=== PATIENT | female | born 1975 | race Caucasian/White ===

== ENCOUNTER 2024-11-06 14:33 | Emergency (ER) | payer BC, SELFPAY ==
[2024-11-06 14:37] VITALS: BP 119/79
[2024-11-06 15:10] LABS: % Basophils 0.3 % (0-2); % Eosinophils 0.6 % (0-6); % Immature Granulocytes 0.3 % (0-0.5); % Lymphocytes 26.7 % (20.5-51.1); % Monocytes 7.4 % (1.7-9.3); % Neutrophils 64.7 % (42.2-75.2); Absolute Eosinophils 0.1 10^3/uL (0-0.7); Absolute Lymphocytes 2.1 10^3/uL (1.2-3.4); Absolute Monocytes 0.6 10^3/uL (0.1-0.6); Absolute Neutrophils 5.1 10^3/uL (1.4-6.5); Hematocrit 39.2 % (37.0-47.0); Hemoglobin 13.4 g/dL (12.0-16.0); Mean Corp Hgb Conc. 34.2 g/dL (33.0-37.0); Mean Corpuscular Hgb 30.4 pg (27.0-31.0); Mean Corpuscular Volume 88.9 fL (81.0-99.0); Mean Platelet Volume 9.7 fL (7.4-10.4); Nucleated Red Blood Cells % 0 %; Platelet Count 242 10^3/uL (130-400); Red Blood Cell Count 4.41 10^6/uL (4.20-5.40); Red Cell Dist. Width 12.6 % (11.5-14.5); White Blood Cell Count 7.9 10^3/uL (4.8-10.8)
[2024-11-06 15:30] LABS: ALT (SGPT) 21 U/L (0-35); AST (SGOT) 24 U/L (14-36); Albumin 4.7 g/dl (3.5-5.0); Alkaline Phosphatase 46 U/L (38-126); Blood Urea Nitrogen 16 mg/dl (7-17); Calcium 10.3 mg/dl (8.4-10.2); Carbon Dioxide 26 mmol/L (22-30); Chloride 106 mmol/L (98-107); Glucose 108 mg/dl (70-99); Potassium 4.7 mmol/L (3.5-5.1); Sodium 142 mmol/L (135-145); Total Bilirubin 0.7 mg/dl (0.2-1.3); Total Protein 7.5 g/dl (6.3-8.2); eGFR > 60.00
[2024-11-06 16:00] VITALS: BP 98/67
[2024-11-06 16:01] VITALS: BP 105/76
[2024-11-06 16:05] VITALS: BP 103/81; BP 105/76; BP 98/67; PULSE 76; PULSE 87
--- NOTE | 2024-11-06 22:40 | ED.GENMED ---
History of Present Illness
General
Chief Complaint: Fainting Sensation
Source: patient
Exam Limitations: none
Time Seen by Provider: 11/06/24 15:42
Nursing documentation reviewed up to this point in time: agreed with
History of Present Illness
History of Present Illness:
Patient states she was using a public toilet. States she was squatting over toilet when her left leg began to suddenly shake and she developed pins and needles to her leg. She states she became anxious and felt like she was going to pass out.
Incident occurred jsut [employer]. SHe has full ROM to LLE. Still with some pins and needle sensation to her leg. No urine incontinence
Past History
Past History
ED Past Medical History: None
ED Past Surgical History: None
Review of Systems
Review of Systems
Allergies reviewed?: Yes
All Other Systems: ROS reviewed and negative except as documented in HPI and ROS
Constitutional: Reports no symptoms
EENT: Reports no symptoms
Respiratory: Reports no symptoms
Cardiac: Reports no symptoms
ABD/GI: Reports no symptoms
: Reports no symptoms
Musculoskeletal: Reports no symptoms
Skin: Reports no symptoms
Neurological: Reports other (pins and needle sensation to LLE)
Psychiatric: Reports no symptoms
Phy Exam
General Physical Exam
General Presentation: well appearing and no apparent distress
General age: appears stated age
General Skin: warm and dry
General Habitus: normal
General Mental: alert
Cardiovascular Exam
Cardiovascular Exam: regular rate/rhythm and no edema
Pulmonary Exam
Pulmonary Exam: no respiratory distress
Reflexes
Reflexes: +3: Left patellar and +3: Right patellar
Musculoskeletal Exam
Musculoskeletal Exam: full ROM, neuro vasc intact and other (equal strength bilaterally. Able to ambulate without assistance.)
Skin Exam
Skin Exam: normal color, warm/dry and no rash
Psychiatric Exam
Psychiatric Exam: normal mood/affect
Course
Orders/Labs/Results
Orders:
Orders
11/06/24 14:40
Electrocardiogram (*1) Urgent
Reason for Study: Vertigo / Dizzy
EKG- Treatment ONCE
11/06/24 14:57
Complete Blood Count/With Diff Urgent
Comprehensive Metabolic Panel Urgent
11/06/24 15:42
Orthostatic VS- Treatment ONCE
11/06/24 16:19
Lumbar Spine Complete, 4 View [CR Lumbar Spine Comp Min 4 Vw*] Urgent
Comment:
Reason For Exam: LLE radiculopathy
Abnormal Lab Results
11/06/24
14:57
Glucose 108 H mg/dl
(70-99)
Calcium 10.3 H mg/dl
(8.4-10.2)
11/06/24 14:57
11/06/24 14:57
Vital Signs
Initial and Last Documented VS:
Initial Vital Signs
Temp Pulse Resp BP Pulse Ox
98.6 F 87 16 119/79 100
11/06/24 14:37 11/06/24 14:37 11/06/24 14:37 11/06/24 14:37 11/06/24 14:37
Last Documented Vital Signs
Temp Pulse Resp BP Pulse Ox
98.6 F 98 21 105/76 98
11/06/24 14:37 11/06/24 16:01 11/06/24 16:01 11/06/24 16:01 11/06/24 16:01
*Radiology
Radiology exam reviewed: radiology read reviewed
*Pulse Oximetry
Patient hypoxic: no
*Critical Care Note
Total Time (30-74mins, 75-104mins- exclusive of procedures): Not Applicable
Update Note
Update Note:
Patient to ED after developing pins and needle sensation to LLE, left leg shaking while squatting over public toilet. Brought to ED by family, pins and needle sensation continues to fade. No weakness in extremities. No saddle paresthesia, no
bowel or bladder issues. AMbulating without difficulty. No concern for cauda equina. No concerning findings on exam. Will discharge home and she will follow up with PCP. GIven instructions on s/s to return to ED and she is agreeable to plan.
Case discussed with Dr. Tong who agrees wit findings and plan
ED Attending Note
-
Portions of this chart may have been created with voice recognition software.� Occasional wrong word or��sound alike� substitutions may have occurred due to the inherent limitations of voice recognition software.
Discharge Plan
Departure
Patient Disposition: Home (Routine Discharge)
Date of Disposition: 11/06/24
Time of Disposition: 17:04
Patient with high blood pressure during this ER visit?: No
Condition: Good
Covid-19: Not Applicable
Discharge Problem:
Radiculopathy, sacral
Instructions: Peripheral neuropathy, Cold therapy for pain, Ibuprofen
Referrals:
UNKNOWN - PT DOES,NOT KNOW [Family Provider] -
Interventions
Interventions:
*Risk Screen - Suicide Last Done: 11/06/24 14:40
*General Assessment Last Done: 11/06/24 16:05
*Neglect/Abuse Screening Last Done: 11/06/24 14:40
*ED- Fall Risk Assessment Last Done: 11/06/24 15:32
*ED COVID-19 Vaccine History Last Done: 11/06/24 15:32
*Nursing Disposition Last Done: 11/06/24 17:42
ED- Cardiac Assessment Last Done: 11/06/24 16:03
ED- Neurological Assessment Last Done: 11/06/24 16:03
Discharge Date and Time
Discharge Date/Time: 11/06/24 17:43
Print Language: MALTESE
== END 2024-11-06 17:43 | disposition home or self-care (01) ==
LOC: EMR 14:33
PROVIDERS: Emergency Medicine; EMERGENCY PHYSICIAN Student in an Organized Health Care Education/Training Program
DX: M54.18 Radiculopathy, sacral and sacrococcygeal region (principal)
CPT/HCPCS: 99285; 72110; 80053; 85025; 93005